=== PATIENT | female | born 1950 | race Caucasian/White ===

== ENCOUNTER 2020-12-22 09:26 | Emergency (ER) | payer OTHER ==
[~2020-12-22] VITALS: Ht 152.4 cm; Wt 61.7 kg
[~2020-12-22 09:26] MED LIST: FOSAMAX70 MG PO; LEVOTHYROXIN0.075 M2 PO; PRILOSEC20 MG PO
[2020-12-22 09:37] VITALS: BP 162/89; Ht 152.4 cm; Wt 61.7 kg
[2020-12-22] MEDS ORDERED: MOT600 PO (10:08)
== END 2020-12-22 10:18 | disposition home or self-care (01) ==
LOC: ED 09:26
DX: S63.637A Sprain of interphalangeal joint of left little finger, initial encounter (principal); M81.0 Age-related osteoporosis without current pathological fracture; Z90.49 Acquired absence of other specified parts of digestive tract; X50.0XXA Overexertion from strenuous movement or load, initial encounter; Y93.89 Activity, other specified; Y92.89 Other specified places as the place of occurrence of the external cause; Y99.8 Other external cause status